=== PATIENT | male | born 1955 | race Hispanic/Latino ===

== ENCOUNTER → 2019-04-12 | Outpatient (CLI) | payer MEDICARE ==
[~2019-04-12] MED LIST: IOHEXOL-350 50ML VIAL IV ONE
== END | disposition home or self-care (01) ==
LOC: RAH 08:39
PROVIDERS: ATTEND Internal Medicine Cardiovascular Disease
DX: K76.89 Other specified diseases of liver (principal); I70.0 Atherosclerosis of aorta; I73.9 Peripheral vascular disease, unspecified
CPT/HCPCS: 75635; Q9967